=== PATIENT | male | born 1950 | race Caucasian/White ===

== ENCOUNTER 2023-06-12 12:00 | Emergency (ER) | payer MEDICARE, BC ==
[2023-06-12 12:18] VITALS: TEMP 98.2; BMI 38.0
[2023-06-12] MEDS ORDERED: ACETAMINOPHEN 1000 MG/100 ML BAG IVPB ONE (13:08)
[2023-06-12 14:39] LABS: BASO % 0.5 % (0-2.0); EOS % 0.9 % (0-4.5); HEMATOCRIT 48.4 % (35.4-49); HEMOGLOBIN 15.4 GM/dL (11.7-16.9); LYMPH % 18.3 % (8-40); MCH 28.7 pg (25.7-33.7); MCHC 31.8 g/dl (32.0-35.9); MEAN CELL VOLUME 90.1 fl (80-96); MEAN PLT VOLUME 7.4 fl (7.5-11.1); MONO % 7.9 % (3.8-10.2); NEUT % 72.4 % (42.8-82.8); PLATELET COUNT 262 10^3/uL (134-434); RBC 5.37 M/mm3 (4.00-5.60); RDW 13.6 % (11.9-15.9); WHITE BLOOD COUNT 12.5 K/mm3 (4.0-10.0)
[2023-06-12] MEDS ORDERED: ACETAMINOPHEN INJECTION 100 ML IVPB ONE (14:46)
[2023-06-12 14:49] LABS: INR 1.02 (0.83-1.09); PROTHROMBIN TIME (PATIENT) 11.8 SEC (9.7-13.0)
[2023-06-12 14:51] LABS: ACTIVATED PTT 31.8 SECONDS (25.2-36.5)
[2023-06-12] MEDS ORDERED: ALPRAZolam 1 MG TABLET PO ONE (15:15)
[2023-06-12 15:18] LABS: POTASSIUM 4.2 mmol/L (3.5-5.1)
[2023-06-12 15:20] LABS: CALCIUM 9.8 mg/dL (8.5-10.1)
[2023-06-12 15:21] LABS: ALBUMIN 4.1 g/dl (3.4-5.0); BLOOD UREA NITROGEN 19.8 mg/dL (7-18)
[2023-06-12 15:25] VITALS: BP 166/97
[2023-06-12 15:25] LABS: TOT PROT 8.2 g/dl (6.4-8.2)
[2023-06-12 15:26] LABS: BILIRUBIN,TOTAL 0.6 mg/dL (0.2-1)
[2023-06-12 15:41] VITALS: PULSE 105; RESP 19
[2023-06-12 15:44] LABS: PH,URINE 5.5 (5.0-8.0); URINE APPEARANCE CLEAR; URINE BILIRUBIN NEGATIVE (NEGATIVE); URINE COLOR YELLOW; URINE GLUCOSE (UA) NEGATIVE (NEGATIVE); URINE KETONE NEGATIVE (NEGATIVE); URINE LEUK ESTERASE NEGATIVE (NEGATIVE); URINE NITRITE NEGATIVE (NEGATIVE); URINE PROTEIN NEGATIVE (NEGATIVE); URINE UROBILINOGEN 0.2 mg/dL (0.2-1.0)
[2023-06-12] MEDS ORDERED: ALPRAZolam 0.25 MG TABLET ONE (15:55)
[2023-06-12] MEDS ORDERED: DEXAMETHASONE SOD PHOSPHATE 10 MG/1 ML VIAL IVPUSH ONE (20:55)
[2023-06-12] MEDS ORDERED: DEXAMETHASONE SOD PHOSPHATE 10 MG/1 ML VIAL ONE (21:01)
== END 2023-06-12 22:20 | disposition home or self-care (01) ==
LOC: JER 12:00
PROC: 3E033NZ Introduction of Analgesics, Hypnotics, Sedatives into Peripheral Vein, Percutaneous Approach (ICD-10-PCS; principal; 2023-06-12)
PROC: 3E033GC Introduction of Other Therapeutic Substance into Peripheral Vein, Percutaneous Approach (ICD-10-PCS; 2023-06-12)
DX: R53.1 Weakness (principal); I10 Essential (primary) hypertension; R00.0 Tachycardia, unspecified; F41.9 Anxiety disorder, unspecified; R20.2 Paresthesia of skin; M54.9 Dorsalgia, unspecified; S14.106A Unspecified injury at C6 level of cervical spinal cord, initial encounter; S14.107A Unspecified injury at C7 level of cervical spinal cord, initial encounter; X58.XXXA Exposure to other specified factors, initial encounter
CPT/HCPCS: 36415; 71045-TC-FY; 72141-TC; 73030-TC-RT-FY; 80053; 81003; 84484; 85025; 85610; 85730; 87086; 93005; 93010; 99285-25; J1100

== ENCOUNTER 2023-07-11 03:46 | Day surgery (SDC) | payer OTHER, BC ==
[2023-07-07 17:06] VITALS: BMI 38.0
[2023-07-11] MEDS ORDERED: LIDOCAINE HCL/PF 1% SDV 5ML VIAL ONE (07:24)
[2023-07-11] MEDS ORDERED: DEXAMETHASONE SOD PHOSPHATE 10 MG/1 ML VIAL ONE (07:24)
[2023-07-11] MEDS ORDERED: ACETAMINOPHEN 500 MG TABLET (FP) PO PRN (09:23)
[2023-07-11] MEDS ORDERED: LIDOCAINE HCL 1% PRESERVATIVE FREE - 30ML VIAL IJ ONE (09:55)
[2023-07-11] MEDS ORDERED: IOHEXOL 180 MG/1 ML ML IJ ONE (10:05)
[2023-07-11] MEDS ORDERED: DEXAMETHASONE SOD PHOSPHATE 10 MG/1 ML VIAL IM ONE (10:06)
[2023-07-11 10:32] VITALS: RESP 20
[2023-07-11 12:28] VITALS: BP 133/81; PULSE 87; TEMP 98
== END 2023-07-11 10:50 | disposition home or self-care (01) ==
LOC: JASU-SURG 03:46
PROVIDERS: ATTEND Pain Medicine Pain Medicine
PROC: 3E0R3BZ Introduction of Anesthetic Agent into Spinal Canal, Percutaneous Approach (ICD-10-PCS; 2023-07-11)
PROC: 3E0R33Z Introduction of Anti-inflammatory into Spinal Canal, Percutaneous Approach (ICD-10-PCS; principal; 2023-07-11 09:30)
DX: M47.812 Spondylosis without myelopathy or radiculopathy, cervical region (principal)
CPT/HCPCS: 76000-TC-FY; J1100